=== PATIENT | male | born 1955 | race Caucasian/White ===

== ENCOUNTER 2021-01-06 11:43 | Emergency (ER) ==
[2021-01-06] MEDS ORDERED: Ziprasidone 20 MG VIAL ONE (12:19)
[2021-01-06 13:26] LABS: #Basophils 0.1 thou/uL (0.0-0.2); #Eosinphils 0.1 thou/uL (0.0-0.7); #Lymphocytes 1.6 thou/uL (1.20-3.40); #Monocytes 0.4 thou/uL (0.11-0.59); #Neutrophils 3.8 thou/uL (1.40-6.50); %Basophils 0.9 % (0.0-1.0); %Eosinophils 1.1 % (0.0-10.0); %Lymphocytes 26.5 % (21.0-51.0); %Monocytes 7.3 % (0.0-10.0); %Neutrophils 64.1 % (42.0-75.0); Mean Corpuscular HGB CONC 34.6 g/dL (32.0-36.0); Mean Corpuscular Hemoglobin 34.2 pg (27.0-31.0); Mean Corpuscular Volume 98.8 fL (78.0-98.0); Mean Platelet Volume 7.9 fL (7.4-10.4); Platelet Count 163 thou/uL (130-400); RBC Distribution Width 11.2 % (11.5-14.5); Red Blood Cell (RBC) Count 4.39 mill/uL (4.70-6.10); White Blood Cell (WBC) Count 5.9 thou/uL (4.8-10.8)
[2021-01-06 13:47] LABS: Acetaminophen Less than 6.0 mcg/mL (10.0-30.0); Alcohol Less than 10 mg/dL (Less than 10); Salicylate Less than 8.0 mg/dL (15.0-30.0)
[2021-01-06 13:48] LABS: Bilirubin Negative (Negative); Blood, Urine Negative (Negative); Clarity Clear (Clear); Glucose, Urine (Dipstick) Normal (Negative); Ketone, Urine Negative (Negative); Leukocyte Negative Leu/uL (Negative); Nitrite Negative (Negative); Protein, Urine (Dipstick) Negative (Neg-Trace); Specific Gravity, Urine 1.016 (1.002-1.036); Urobilinogen Normal mg/dL (Less than 2); pH, Urine 6.5 (5.0-9.0)
[2021-01-06 13:49] LABS: ALT (SGPT) 20 U/L (8-55); AST (SGOT) 22 U/L (5-34); Alkaline Phosphatase 65 U/L (40-110); Anion Gap 11 mmol/L (10-20); BUN (Urea Nitrogen) 15 mg/dL (8.4-25.7); Bilirubin, Total 1.5 mg/dL (0.2-1.2); Calc. Creatinine Clearance 0 mL/min (70-130); Calcium 8.6 mg/dL (7.8-10.44); Carbon Dioxide 25 mmol/L (23-31); Chloride 107 mmol/L (98-107); Globulin 2.6 g/dL (2.4-3.5); Glucose 98 mg/dL (80-115); Potassium 4.3 mmol/L (3.5-5.1); Protein, Total 6.6 g/dL (5.8-8.1); Sodium 139 mmol/L (136-145)
[2021-01-06 13:59] LABS: Amphetamine Not Detected (NotDetected); Barbiturates Screen Not Detected (NotDetected); Benzodiazepine Screen Not Detected (NotDetected); Cocaine Metabolite Screen Not Detected (NotDetected); Medtox Control Line Valid? VALID (VALID); Medtox Reader # READER 4; Methadone Not Detected (NotDetected); Methamphetamine Not Detected (NotDetected); Opiate Screen Not Detected (NotDetected); Oxycodone Screen Not Detected (NotDetected); Phencyclidine (PCP) Not Detected (NotDetected); THC/Cannabinoid Screen Not Detected (NotDetected); Tricyclic Screen Not Detected (NotDetected)
== END 2021-01-06 21:30 ==
LOC: ERS 11:43
DX: F29 Unspecified psychosis not due to a substance or known physiological condition (principal); F17.220 Nicotine dependence, chewing tobacco, uncomplicated
CPT/HCPCS: 36415; 80053; 80306; 80307; 81003; 84443; 85025; 96372; 99285; J3486

== ENCOUNTER 2021-07-11 02:25 | Inpatient (IN) | payer MEDICARE ==
[2021-07-11 04:43] LABS: Troponin I 0.036 ng/mL (< 0.028)
[2021-07-11 07:16] LABS: Troponin I 0.026 ng/mL (< 0.028)
[2021-07-11] MEDS ORDERED: Nitroglycerin 0.4 MG TAB (25 Tab Bottle) SL PRN (09:13)
[2021-07-11] MEDS ORDERED: Senokot S 8.6-50 MG TAB PO PRN (09:16)
[2021-07-11] MEDS ORDERED: Acetaminophen 325 MG TAB PO PRN (09:16)
[2021-07-11] MEDS ORDERED: Calcium Carbonate 500 MG ChewTAB PO PRN (09:16)
[2021-07-11] MEDS ORDERED: Communication Order-Pharmacy FS ONE (09:17)
[2021-07-11] MEDS ORDERED: hydrALAZINE 20 MG/ML VIAL SLOW IVP PRN (09:19)
[2021-07-11] MEDS ORDERED: HYDROcodone/Acetaminophen 5/325 mg Tablet ONE (09:58)
[2021-07-11] MEDS: HYDROcodone/Acetaminophen 5/325 mg Tablet PO PRN (10:01)
[2021-07-11 10:09] VITALS: BMI 28.7
[2021-07-11 10:20] LABS: Lactic Acid 1.6 mmol/L (0.5-2.2)
[2021-07-11 10:24] LABS: ALT (SGPT) 34 U/L (8-55); AST (SGOT) 37 U/L (5-34); Albumin 3.4 g/dL (3.4-4.8); Alkaline Phosphatase 69 U/L (40-110); Anion Gap 14 mmol/L (10-20); BUN (Urea Nitrogen) 27 mg/dL (8.4-25.7); Bilirubin, Total 1.9 mg/dL (0.2-1.2); Calc. Creatinine Clearance 65 mL/min (70-130); Calcium 8.6 mg/dL (7.8-10.44); Carbon Dioxide 23 mmol/L (23-31); Chloride 104 mmol/L (98-107); Globulin 1.9 g/dL (2.4-3.5); Glucose 114 mg/dL (80-115); Magnesium 1.8 mg/dL (1.6-2.6); Potassium 4.4 mmol/L (3.5-5.1); Protein, Total 5.3 g/dL (5.8-8.1); Sodium 137 mmol/L (136-145)
[2021-07-11 10:39] LABS: Bacteria/HPF None Seen HPF (None Seen); Bilirubin Negative (Negative); Blood, Urine Negative (Negative); Clarity Clear (Clear); Glucose, Urine (Dipstick) Normal (Negative); Ketone, Urine Negative (Negative); Leukocyte Negative Leu/uL (Negative); Nitrite Negative (Negative); Protein, Urine (Dipstick) Negative (Neg-Trace); RBC/HPF 0-3 HPF (0-3); Specific Gravity, Urine 1.015 (1.002-1.036); Squamous Epithelial 0-3 HPF (0-3); Urobilinogen Normal mg/dL (Less than 2); WBC/HPF 0-3 HPF (0-3)
[2021-07-11] MEDS ORDERED: Enoxaparin Sodium 100 MG/ML SYRINGE ONE (11:20)
[2021-07-11] MEDS: Enoxaparin Sodium 100 MG/ML SYRINGE SC SCH (11:25)
[2021-07-11] MEDS ORDERED: GUAIFENESIN SF SOLN 200 MG/10 ML UDCUP PO PRN (11:36)
[2021-07-11] MEDS ORDERED: Spironolactone 25 MG TAB PO SCH (12:15)
[2021-07-11] MEDS ORDERED: Metoprolol Tartrate 25 MG TAB ONE (13:02)
[2021-07-11] MEDS ORDERED: Furosemide 40 MG/4 ML VIAL ONE (13:03)
[2021-07-11] MEDS ORDERED: Enoxaparin Sodium 80 MG/0.8 ML SYRINGE SC SCH (14:00)
[2021-07-11] MEDS: Furosemide 40 MG/4 ML VIAL SLOW IVP SCH (14:04)
[2021-07-11] MEDS ORDERED: Magnesium Sulfate 2 GM in Sodium Chloride 0.9% 100 ML IVPB SCH (19:45)
[2021-07-11] MEDS ORDERED: Magnesium 2 GM/50 ML 2 GM in Premix Bag 1 BAG IVPB SCH (19:45)
[2021-07-11] MEDS ORDERED: Electrolyte Replacement Protocol 1 EACH FS SCH (19:45)
[2021-07-11] MEDS: guaiFENesin ER 600 MG TAB PO SCH (20:05)
[2021-07-12] MEDS: Enoxaparin Sodium 100 MG/ML SYRINGE SC SCH ×3 (01:22→23:36)
[2021-07-12 04:46] LABS: #Basophils 0.1 thou/uL (0.0-0.2); #Eosinphils 0.1 thou/uL (0.0-0.7); #Lymphocytes 1.5 thou/uL (1.20-3.40); #Monocytes 0.8 thou/uL (0.11-0.59); #Neutrophils 6.3 thou/uL (1.40-6.50); %Basophils 0.7 % (0.0-1.0); %Eosinophils 0.8 % (0.0-10.0); %Lymphocytes 17.4 % (21.0-51.0); %Monocytes 9.2 % (0.0-10.0); %Neutrophils 71.8 % (42.0-75.0); Hemoglobin 14.5 g/dL (14.0-18.0); Mean Corpuscular HGB CONC 32.8 g/dL (32.0-36.0); Mean Corpuscular Hemoglobin 32.6 pg (27.0-31.0); Mean Corpuscular Volume 99.1 fL (78.0-98.0); Mean Platelet Volume 8.7 fL (7.4-10.4); Platelet Count 160 thou/uL (130-400); Red Blood Cell (RBC) Count 4.47 mill/uL (4.70-6.10); White Blood Cell (WBC) Count 8.7 thou/uL (4.8-10.8)
[2021-07-12 05:07] LABS: ALT (SGPT) 33 U/L (8-55); AST (SGOT) 39 U/L (5-34); Albumin 3.3 g/dL (3.4-4.8); Alkaline Phosphatase 67 U/L (40-110); Anion Gap 12 mmol/L (10-20); BUN (Urea Nitrogen) 30 mg/dL (8.4-25.7); Bilirubin, Total 1.5 mg/dL (0.2-1.2); Calc. Creatinine Clearance 66 mL/min (70-130); Calcium 8.7 mg/dL (7.8-10.44); Carbon Dioxide 25 mmol/L (23-31); Chloride 102 mmol/L (98-107); Glucose 103 mg/dL (80-115); Magnesium 2.1 mg/dL (1.6-2.6); Potassium 4.2 mmol/L (3.5-5.1); Protein, Total 5.3 g/dL (5.8-8.1); Sodium 135 mmol/L (136-145)
[2021-07-12] MEDS: Furosemide 40 MG/4 ML VIAL SLOW IVP SCH (05:46)
[2021-07-12] MEDS: HYDROcodone/Acetaminophen 5/325 mg Tablet PO PRN (08:24)
[2021-07-12] MEDS: guaiFENesin ER 600 MG TAB PO SCH ×2 (08:25→20:35)
[2021-07-12] MEDS: Spironolactone 25 MG TAB PO SCH (08:25)
[2021-07-12] MEDS: Aspirin 81 mg Enteric Coated Tablet PO SCH (08:25)
[2021-07-12] MEDS ORDERED: FLU VACC QS2021-22(6MOS UP)/PF 60 MCG/0.5 ML SYRINGE IM ONE (09:00)
[2021-07-12] MEDS ORDERED: Furosemide 40 MG/4 ML VIAL SLOW IVP SCH (12:15)
[2021-07-12] MEDS: Digoxin 0.5 MG/2 ML AMP SLOW IVP SCH ×2 (12:30→15:06)
[2021-07-12] MEDS ORDERED: Digoxin 0.25 MG TAB PO SCH (16:30)
[2021-07-13 04:58] LABS: #Eosinphils 0.1 thou/uL (0.0-0.7); #Lymphocytes 1.6 thou/uL (1.20-3.40); #Monocytes 0.8 thou/uL (0.11-0.59); #Neutrophils 5.7 thou/uL (1.40-6.50); %Basophils 0.5 % (0.0-1.0); %Eosinophils 1.1 % (0.0-10.0); %Lymphocytes 19.1 % (21.0-51.0); %Monocytes 9.8 % (0.0-10.0); %Neutrophils 69.6 % (42.0-75.0); Hemoglobin 13.3 g/dL (14.0-18.0); Mean Corpuscular HGB CONC 33.6 g/dL (32.0-36.0); Mean Corpuscular Hemoglobin 33.3 pg (27.0-31.0); Mean Corpuscular Volume 99.2 fL (78.0-98.0); Mean Platelet Volume 8.8 fL (7.4-10.4); Platelet Count 146 thou/uL (130-400); RBC Distribution Width 12.9 % (11.5-14.5); White Blood Cell (WBC) Count 8.2 thou/uL (4.8-10.8)
[2021-07-13 05:21] LABS: Anion Gap 13 mmol/L (10-20); BUN (Urea Nitrogen) 29 mg/dL (8.4-25.7); Calc. Creatinine Clearance 64 mL/min (70-130); Carbon Dioxide 29 mmol/L (23-31); Chloride 101 mmol/L (98-107); Potassium 3.6 mmol/L (3.5-5.1); Sodium 139 mmol/L (136-145)
[2021-07-13 05:22] LABS: ALT (SGPT) 27 U/L (8-55); AST (SGOT) 28 U/L (5-34); Alkaline Phosphatase 59 U/L (40-110); Bilirubin, Total 0.9 mg/dL (0.2-1.2); Calcium 8.1 mg/dL (7.8-10.44); Globulin 1.8 g/dL (2.4-3.5); Glucose 125 mg/dL (80-115); Magnesium 1.8 mg/dL (1.6-2.6); Protein, Total 4.8 g/dL (5.8-8.1)
[2021-07-13] MEDS: Furosemide 40 MG/4 ML VIAL SLOW IVP SCH ×2 (05:32→13:57)
[2021-07-13] MEDS ORDERED: Magnesium 2 GM/50 ML 2 GM in Premix Bag 1 BAG IVPB SCH (06:45)
[2021-07-13] MEDS: Digoxin 0.25 MG TAB PO SCH (08:53)
[2021-07-13] MEDS: Aspirin 81 mg Enteric Coated Tablet PO SCH (08:54)
[2021-07-13] MEDS: guaiFENesin ER 600 MG TAB PO SCH ×2 (08:55→20:29)
[2021-07-13] MEDS: Spironolactone 25 MG TAB PO SCH (08:55)
[2021-07-13] MEDS ORDERED: Communication Order-Pharmacy FS SCH (09:30)
[2021-07-13] MEDS: Enoxaparin Sodium 100 MG/ML SYRINGE SC SCH (11:13)
[2021-07-13] MEDS ORDERED: Furosemide 40 MG TAB PO SCH (14:45)
[2021-07-14 05:16] LABS: Hemoglobin 13.8 g/dL (14.0-18.0); Platelet Count 132 thou/uL (130-400)
[2021-07-14] MEDS: Digoxin 0.25 MG TAB PO SCH (05:22)
[2021-07-14] MEDS: Aspirin 81 mg Enteric Coated Tablet PO SCH (05:22)
[2021-07-14] MEDS: guaiFENesin ER 600 MG TAB PO SCH ×2 (05:23→21:24)
[2021-07-14] MEDS: Spironolactone 25 MG TAB PO SCH (05:23)
[2021-07-14 05:34] LABS: Anion Gap 12 mmol/L (10-20); BUN (Urea Nitrogen) 25 mg/dL (8.4-25.7); Calc. Creatinine Clearance 73 mL/min (70-130); Calcium 7.7 mg/dL (7.8-10.44); Carbon Dioxide 29 mmol/L (23-31); Chloride 103 mmol/L (98-107); Glucose 78 mg/dL (80-115); Potassium 4.2 mmol/L (3.5-5.1); Sodium 140 mmol/L (136-145)
[2021-07-14] MEDS: Furosemide 40 MG/4 ML VIAL SLOW IVP SCH ×2 (05:52→15:23)
[2021-07-14] MEDS ORDERED: Iopamidol 370 76% 100 ML VIAL ONE (08:41)
[2021-07-14] MEDS ORDERED: Morphine 2 MG/ML VIAL ONE (11:21)
[2021-07-14] MEDS ORDERED: Midazolam HCl 2 mg/2 ml Vial ONE (11:30)
[2021-07-14] MEDS ORDERED: Sodium Chloride 0.9% 200 ML IV PRN (11:48)
[2021-07-14] MEDS ORDERED: Acetaminophen/Codeine 30-300mg Tablet PO PRN (11:48)
[2021-07-14] MEDS ORDERED: Nitroglycerin 0.4 MG TAB (25 Tab Bottle) SL PRN (11:48)
[2021-07-14] MEDS ORDERED: Morphine 2 MG/ML VIAL SLOW IVP SCH (13:45)
[2021-07-14] MEDS ORDERED: Metolazone 5 MG TAB PO SCH (16:00)
[2021-07-14] MEDS ORDERED: Morphine 2 MG/ML VIAL SLOW IVP PRN (17:45)
[2021-07-14] MEDS: Nystatin Powder 15 GM BOT TOP SCH (21:25)
[2021-07-15] MEDS: Acetaminophen/Codeine 30-300mg Tablet PO PRN ×3 (00:10→21:12)
[2021-07-15] MEDS: Furosemide 40 MG/4 ML VIAL SLOW IVP SCH ×2 (05:04→14:13)
[2021-07-15] MEDS ORDERED: Metolazone 5 MG TAB PO SCH (08:30)
[2021-07-15] MEDS: Digoxin 0.25 MG TAB PO SCH (08:42)
[2021-07-15] MEDS: Apixaban 5 MG TAB PO SCH ×2 (08:44→21:05)
[2021-07-15] MEDS: Spironolactone 25 MG TAB PO SCH (08:44)
[2021-07-15] MEDS: guaiFENesin ER 600 MG TAB PO SCH ×2 (08:44→21:05)
[2021-07-15] MEDS: Nystatin Powder 15 GM BOT TOP SCH ×3 (08:46→21:05)
[2021-07-16 04:53] LABS: Anion Gap 15 mmol/L (10-20); Carbon Dioxide 37 mmol/L (23-31); Chloride 91 mmol/L (98-107); Potassium 4.2 mmol/L (3.5-5.1); Sodium 139 mmol/L (136-145)
[2021-07-16 04:59] LABS: BUN (Urea Nitrogen) 22 mg/dL (8.4-25.7); Calc. Creatinine Clearance 72 mL/min (70-130); Glucose 96 mg/dL (80-115)
[2021-07-16] MEDS: Furosemide 40 MG/4 ML VIAL SLOW IVP SCH ×2 (05:52→14:16)
[2021-07-16] MEDS: Digoxin 0.25 MG TAB PO SCH (08:14)
[2021-07-16] MEDS: guaiFENesin ER 600 MG TAB PO SCH ×2 (08:17→20:48)
[2021-07-16] MEDS: Spironolactone 25 MG TAB PO SCH (08:18)
[2021-07-16] MEDS: Apixaban 5 MG TAB PO SCH ×2 (08:18→20:48)
[2021-07-16] MEDS: Nystatin Powder 15 GM BOT TOP SCH ×3 (08:18→20:46)
[2021-07-17 04:54] LABS: Hemoglobin 16.2 g/dL (14.0-18.0); Platelet Count 189 thou/uL (130-400)
[2021-07-17] MEDS: Furosemide 40 MG/4 ML VIAL SLOW IVP SCH (05:26)
[2021-07-17] MEDS ORDERED: Midazolam HCl 2 mg/2 ml Vial ONE (09:20)
[2021-07-17] MEDS ORDERED: Ketamine 50 MG/ML (10ML VIAL) ONE (09:20)
[2021-07-17] MEDS ORDERED: PROPOFOL 200 MG/20 ML VIAL ONE (09:27)
[2021-07-17] MEDS: Apixaban 5 MG TAB PO SCH ×2 (12:13→21:17)
[2021-07-17] MEDS: Spironolactone 25 MG TAB PO SCH (12:14)
[2021-07-17] MEDS: guaiFENesin ER 600 MG TAB PO SCH ×2 (12:15→21:19)
[2021-07-17] MEDS: Nystatin Powder 15 GM BOT TOP SCH ×3 (12:16→21:19)
[2021-07-17] MEDS: Amiodarone 200 MG TAB PO SCH ×2 (15:47→21:18)
[2021-07-17] MEDS: Acetaminophen/Codeine 30-300mg Tablet PO PRN (21:24)
[2021-07-18 05:30] LABS: Anion Gap 16 mmol/L (10-20); BUN (Urea Nitrogen) 38 mg/dL (8.4-25.7); Calc. Creatinine Clearance 52 mL/min (70-130); Calcium 8.5 mg/dL (7.8-10.44); Carbon Dioxide 32 mmol/L (23-31); Chloride 91 mmol/L (98-107); Glucose 107 mg/dL (80-115); Potassium 4.6 mmol/L (3.5-5.1); Sodium 134 mmol/L (136-145)
[2021-07-18] MEDS ORDERED: Furosemide 40 MG TAB PO SCH ×2 (07:30→09:30)
[2021-07-18] MEDS: Spironolactone 25 MG TAB PO SCH (09:42)
[2021-07-18] MEDS: Apixaban 5 MG TAB PO SCH ×2 (09:43→21:07)
[2021-07-18] MEDS: guaiFENesin ER 600 MG TAB PO SCH ×2 (09:43→21:08)
[2021-07-18] MEDS: Nystatin Powder 15 GM BOT TOP SCH ×3 (09:45→21:09)
[2021-07-18] MEDS: Amiodarone 200 MG TAB PO SCH ×2 (17:57→21:07)
[2021-07-19] MEDS ORDERED: Furosemide 40 MG TAB PO SCH (07:30)
[2021-07-19] MEDS: Amiodarone 200 MG TAB PO SCH (08:23)
[2021-07-19] MEDS: Apixaban 5 MG TAB PO SCH (08:23)
[2021-07-19] MEDS: guaiFENesin ER 600 MG TAB PO SCH (08:23)
[2021-07-19] MEDS: Nystatin Powder 15 GM BOT TOP SCH ×3 (08:24→14:47)
[2021-07-19] MEDS: Spironolactone 25 MG TAB PO SCH (08:24)
[2021-07-19 16:06] VITALS: BP 116/66; TEMP 98.1
== END 2021-07-19 16:23 | disposition home or self-care (01) | DRG 286 ==
LOC: ERS 02:25 → ERHOLD 03:09 → 2NO 15:38
PROVIDERS: ADMIT Student in an Organized Health Care Education/Training Program; ATTEND Internal Medicine
PROC: 4A023N7 Measurement of Cardiac Sampling and Pressure, Left Heart, Percutaneous Approach (ICD-10-PCS; principal; 2021-07-14)
PROC: B2111ZZ Fluoroscopy of Multiple Coronary Arteries using Low Osmolar Contrast (ICD-10-PCS; 2021-07-14)
PROC: B2151ZZ Fluoroscopy of Left Heart using Low Osmolar Contrast (ICD-10-PCS; 2021-07-14)
PROC: B24BZZ4 Ultrasonography of Heart with Aorta, Transesophageal (ICD-10-PCS; 2021-07-17)
PROC: 5A2204Z Restoration of Cardiac Rhythm, Single (ICD-10-PCS; 2021-07-17)
DX: I13.0 Hypertensive heart and chronic kidney disease with heart failure and stage 1 through stage 4 chronic kidney disease, or unspecified chronic kidney disease (principal); J96.01 Acute respiratory failure with hypoxia; I50.23 Acute on chronic systolic (congestive) heart failure; N17.9 Acute kidney failure, unspecified; E87.1 Hypo-osmolality and hyponatremia; Z20.822 Contact with and (suspected) exposure to COVID-19; I48.0 Paroxysmal atrial fibrillation; F25.9 Schizoaffective disorder, unspecified; F17.210 Nicotine dependence, cigarettes, uncomplicated; J44.9 Chronic obstructive pulmonary disease, unspecified; I08.1 Rheumatic disorders of both mitral and tricuspid valves; I42.8 Other cardiomyopathies; N18.30 Chronic kidney disease, stage 3 unspecified; Z79.899 Other long term (current) drug therapy; Z98.890 Other specified postprocedural states
CPT/HCPCS: 36415; 36416; 71046; 76870; 80048; 80053; 81001; 83605; 83735; 84443; 84484; 85014; 85018; 85025; 85049; 86140; 92960; 93005; 93010; 93306; 93312; 93458; 93798; 93976; 94760; 97139; 99152; 99285; J1160; J1650; J1940; J2250; J2270; J2704; J3475; Q9967

== ENCOUNTER 2021-09-07 21:05 | Inpatient (IN) | payer MEDICARE ==
[~2021-09-07 21:05] MED LIST: Iopamidol-370 76% 500 ML 1 ML ONE
[2021-09-07] MEDS ORDERED: Digoxin 0.5 MG/2 ML AMP ONE (21:47)
[2021-09-07] MEDS ORDERED: Magnesium 2 GM/50 ML BAG (IN WATER) ONE (21:47)
[2021-09-07] MEDS ORDERED: Furosemide 40 MG/4 ML VIAL ONE (21:47)
[2021-09-07 21:53] LABS: #Lymphocytes 0.8 thou/uL (1.20-3.40); #Monocytes 0.8 thou/uL (0.11-0.59); #Neutrophils 11.4 thou/uL (1.40-6.50); %Basophils 0.1 % (0.0-1.0); %Eosinophils 0.1 % (0.0-10.0); %Lymphocytes 6.3 % (21.0-51.0); %Monocytes 5.8 % (0.0-10.0); %Neutrophils 87.7 % (42.0-75.0); Hemoglobin 14.7 g/dL (14.0-18.0); Mean Corpuscular HGB CONC 32.2 g/dL (32.0-36.0); Mean Corpuscular Hemoglobin 33.2 pg (27.0-31.0); Platelet Count 114 thou/uL (130-400); RBC Distribution Width 14.7 % (11.5-14.5); Red Blood Cell (RBC) Count 4.41 mill/uL (4.70-6.10); White Blood Cell (WBC) Count 13.1 thou/uL (4.8-10.8)
[2021-09-07 22:09] LABS: ALT (SGPT) 70 U/L (8-55); AST (SGOT) 102 U/L (5-34); Alkaline Phosphatase 136 U/L (40-110); Anion Gap 15 mmol/L (10-20); BUN (Urea Nitrogen) 37 mg/dL (8.4-25.7); Bilirubin, Total 2.6 mg/dL (0.2-1.2); CK (CPK) 1125 U/L (30-200); Calc. Creatinine Clearance 0 mL/min (70-130); Calcium 8.8 mg/dL (7.8-10.44); Carbon Dioxide 20 mmol/L (23-31); Chloride 97 mmol/L (98-107); Globulin 2.7 g/dL (2.4-3.5); Glucose 114 mg/dL (80-115); Lipase 66 U/L (8-78); Potassium 4.7 mmol/L (3.5-5.1); Protein, Total 5.7 g/dL (5.8-8.1); Sodium 127 mmol/L (136-145)
[2021-09-07] MEDS ORDERED: Diltiazem HCl 125 MG, Admixture Fee 1 EACH in Sodium Chloride 0.9% 100 ML IVPB SCH (22:15)
[2021-09-07 22:48] LABS: Acetaminophen Less than 6.0 mcg/mL (10.0-30.0); Alcohol Less than 10 mg/dL (Less than 10); Salicylate Less than 8.0 mg/dL (15.0-30.0)
[2021-09-07 23:12] LABS: CKMB 22.5 ng/mL (0-6.6)
[2021-09-07] MEDS ORDERED: Apixaban 5 MG TAB PO SCH (23:45)
[2021-09-08 02:00] LABS: Troponin I 0.039 ng/mL (< 0.028)
[2021-09-08 02:56] LABS: SARS-CoV-2 NAA Rapid Test Not Detected (NotDetected)
[2021-09-08] MEDS ORDERED: Acetaminophen 325 MG TAB ONE (03:10)
[2021-09-08] MEDS: Acetaminophen 325 MG TAB PO PRN ×3 (04:19→23:04)
[2021-09-08 05:06] LABS: Anion Gap 13 mmol/L (10-20); BUN (Urea Nitrogen) 37 mg/dL (8.4-25.7); Calc. Creatinine Clearance 79 mL/min (70-130); Carbon Dioxide 28 mmol/L (23-31); Chloride 94 mmol/L (98-107); Potassium 3.9 mmol/L (3.5-5.1); Sodium 131 mmol/L (136-145)
[2021-09-08 05:07] LABS: Calcium 8.3 mg/dL (7.8-10.44); Glucose 69 mg/dL (80-115); Magnesium 2.2 mg/dL (1.6-2.6)
[2021-09-08 05:12] LABS: Troponin I 0.042 ng/mL (< 0.028)
[2021-09-08] MEDS ORDERED: FLU VACC QS2021-22(65YR UP)/PF 240 MCG/0.7 ML SYRINGE IM ONE (09:15)
[2021-09-08 13:02] LABS: SARS-CoV-2 PCR by NAA Not Detected (NotDetected)
[2021-09-08] MEDS ORDERED: Calcium Carbonate 500 MG ChewTAB PO PRN (14:14)
[2021-09-08] MEDS ORDERED: Senokot S 8.6-50 MG TAB PO PRN (14:14)
[2021-09-08] MEDS ORDERED: Lorazepam 1 MG TAB PO PRN (19:28)
[2021-09-08] MEDS ORDERED: Lorazepam 2 MG/ML VIAL IM PRN (19:28)
[2021-09-08] MEDS ORDERED: Ondansetron ODT 4 MG TAB PO PRN (19:28)
[2021-09-08] MEDS ORDERED: Electrolyte Replacement Protocol 1 EACH FS SCH (19:30)
[2021-09-08] MEDS ORDERED: Lorazepam 1 MG TAB PO SCH (19:30)
[2021-09-08 20:45] LABS: Phosphorus 3.4 mg/dL (2.3-4.7)
[2021-09-08] MEDS: Apixaban 5 MG TAB PO SCH (23:04)
[2021-09-08] MEDS: Thiamine HCl 200 MG/2 ML VIAL SLOW IVP SCH (23:07)
[2021-09-08] MEDS: Lorazepam 1 MG TAB PO SCH (23:49)
[2021-09-09] MEDS ORDERED: HYDROcodone/Acetaminophen 7.5/325 mg Tablet PO SCH (01:45)
[2021-09-09 04:49] LABS: Amphetamine Not Detected (NotDetected); Barbiturates Screen Not Detected (NotDetected); Benzodiazepine Screen Not Detected (NotDetected); Cocaine Metabolite Screen Not Detected (NotDetected); Methadone Not Detected (NotDetected); Methamphetamine Not Detected (NotDetected); Opiate Screen Not Detected (NotDetected); Oxycodone Screen Not Detected (NotDetected); Phencyclidine (PCP) Not Detected (NotDetected); THC/Cannabinoid Screen Not Detected (NotDetected); Tricyclic Screen Not Detected (NotDetected)
[2021-09-09 05:35] LABS: #Eosinphils 0.1 thou/uL (0.0-0.7); #Lymphocytes 0.8 thou/uL (1.20-3.40); #Monocytes 0.7 thou/uL (0.11-0.59); #Neutrophils 7.5 thou/uL (1.40-6.50); %Basophils 0.2 % (0.0-1.0); %Eosinophils 0.6 % (0.0-10.0); %Lymphocytes 9.2 % (21.0-51.0); %Monocytes 7.3 % (0.0-10.0); %Neutrophils 82.8 % (42.0-75.0); Hemoglobin 12.8 g/dL (14.0-18.0); Mean Corpuscular HGB CONC 32.9 g/dL (32.0-36.0); Mean Corpuscular Hemoglobin 33.6 pg (27.0-31.0); Mean Platelet Volume 7.7 fL (7.4-10.4); Platelet Count 98 thou/uL (130-400); RBC Distribution Width 14.6 % (11.5-14.5); Red Blood Cell (RBC) Count 3.81 mill/uL (4.70-6.10); White Blood Cell (WBC) Count 9.1 thou/uL (4.8-10.8)
[2021-09-09 05:46] LABS: ALT (SGPT) 51 U/L (8-55); AST (SGOT) 47 U/L (5-34); Albumin 2.6 g/dL (3.4-4.8); Alkaline Phosphatase 106 U/L (40-110); Bilirubin, Direct 0.9 mg/dL (0.1-0.3); Bilirubin, Total 1.4 mg/dL (0.2-1.2); Magnesium 2.1 mg/dL (1.6-2.6); Protein, Total 4.8 g/dL (5.8-8.1)
[2021-09-09] MEDS ORDERED: Furosemide 40 MG/4 ML VIAL SLOW IVP SCH (06:00)
[2021-09-09] MEDS: Lorazepam 1 MG TAB PO SCH ×4 (06:52→23:43)
[2021-09-09 07:03] LABS: Anion Gap 13 mmol/L (10-20); BUN (Urea Nitrogen) 35 mg/dL (8.4-25.7); Calc. Creatinine Clearance 71 mL/min (70-130); Calcium 7.8 mg/dL (7.8-10.44); Carbon Dioxide 24 mmol/L (23-31); Chloride 96 mmol/L (98-107); Glucose 103 mg/dL (80-115); Potassium 3.8 mmol/L (3.5-5.1); Sodium 129 mmol/L (136-145)
[2021-09-09] MEDS: Apixaban 5 MG TAB PO SCH ×2 (08:05→21:18)
[2021-09-09] MEDS: Multivit, Therapeutic 1 TAB PO SCH (08:05)
[2021-09-09] MEDS: Folic Acid 1 MG TAB PO SCH (08:05)
[2021-09-09] MEDS ORDERED: Spironolactone 25 MG TAB PO SCH (09:00)
[2021-09-09] MEDS ORDERED: Furosemide 100 MG/10 ML VIAL SLOW IVP SCH (09:30)
[2021-09-09 13:33] VITALS: BMI 28.7
[2021-09-09] MEDS: Furosemide 100 MG/10 ML VIAL SLOW IVP SCH (15:03)
[2021-09-09] MEDS ORDERED: Lorazepam 1 MG TAB PO PRN (19:29)
[2021-09-09] MEDS: Thiamine HCl 200 MG/2 ML VIAL SLOW IVP SCH (21:19)
[2021-09-10 05:45] LABS: ALT (SGPT) 43 U/L (8-55); AST (SGOT) 35 U/L (5-34); Albumin 2.6 g/dL (3.4-4.8); Alkaline Phosphatase 97 U/L (40-110); Anion Gap 11 mmol/L (10-20); BUN (Urea Nitrogen) 34 mg/dL (8.4-25.7); Bilirubin, Total 1.2 mg/dL (0.2-1.2); Calc. Creatinine Clearance 78 mL/min (70-130); Calcium 7.5 mg/dL (7.8-10.44); Carbon Dioxide 28 mmol/L (23-31); Chloride 96 mmol/L (98-107); Globulin 2.2 g/dL (2.4-3.5); Glucose 97 mg/dL (80-115); Magnesium 1.7 mg/dL (1.6-2.6); Potassium 3.8 mmol/L (3.5-5.1); Protein, Total 4.8 g/dL (5.8-8.1); Sodium 131 mmol/L (136-145)
[2021-09-10] MEDS: Furosemide 100 MG/10 ML VIAL SLOW IVP SCH ×2 (06:42→13:10)
[2021-09-10] MEDS: Lorazepam 1 MG TAB PO SCH ×3 (06:43→18:04)
[2021-09-10] MEDS: Folic Acid 1 MG TAB PO SCH (09:50)
[2021-09-10] MEDS: Apixaban 5 MG TAB PO SCH ×2 (09:50→23:02)
[2021-09-10] MEDS: Multivit, Therapeutic 1 TAB PO SCH (09:51)
[2021-09-10] MEDS: Spironolactone 25 MG TAB PO SCH (09:51)
[2021-09-10] MEDS ORDERED: Magnesium 2 GM/50 ML 2 GM in Premix Bag 1 BAG IVPB SCH (12:00)
[2021-09-10] MEDS: Acetaminophen 325 MG TAB PO PRN ×2 (13:10→23:03)
[2021-09-10] MEDS ORDERED: Lorazepam 1 MG TAB PO PRN (19:29)
[2021-09-10] MEDS ORDERED: Lorazepam 0.5 MG TAB PO SCH (19:30)
[2021-09-10] MEDS: Nicotine 21 MG PATCH TD SCH (23:02)
[2021-09-11] MEDS: Thiamine HCl 200 MG/2 ML VIAL SLOW IVP SCH (00:23)
[2021-09-11] MEDS ORDERED: Loperamide HCl 2 MG CAP PO PRN (01:09)
[2021-09-11] MEDS: Lorazepam 1 MG TAB PO SCH (01:45)
[2021-09-11] MEDS: traMADol HCl 50 MG TAB PO PRN ×2 (02:55→23:59)
[2021-09-11 06:26] LABS: Anion Gap 8 mmol/L (10-20); BUN (Urea Nitrogen) 41 mg/dL (8.4-25.7); Calc. Creatinine Clearance 95 mL/min (70-130); Calcium 7.6 mg/dL (7.8-10.44); Carbon Dioxide 33 mmol/L (23-31); Chloride 94 mmol/L (98-107); Glucose 95 mg/dL (80-115); Magnesium 1.8 mg/dL (1.6-2.6); Potassium 3.9 mmol/L (3.5-5.1); Sodium 131 mmol/L (136-145)
[2021-09-11] MEDS ORDERED: Magnesium 2 GM/50 ML 2 GM in Premix Bag 1 BAG IVPB SCH (06:45)
[2021-09-11] MEDS: Furosemide 100 MG/10 ML VIAL SLOW IVP SCH ×2 (06:49→16:16)
[2021-09-11] MEDS: Lorazepam 0.5 MG TAB PO SCH ×4 (07:37→23:54)
[2021-09-11] MEDS: Apixaban 5 MG TAB PO SCH ×2 (09:32→21:08)
[2021-09-11] MEDS: Spironolactone 25 MG TAB PO SCH (09:32)
[2021-09-11] MEDS: Folic Acid 1 MG TAB PO SCH (09:32)
[2021-09-11] MEDS: Multivit, Therapeutic 1 TAB PO SCH (09:32)
[2021-09-11] MEDS ORDERED: Lorazepam 0.5 MG TAB PO PRN (19:29)
[2021-09-11] MEDS: Nicotine 21 MG PATCH TD SCH (21:01)
[2021-09-11] MEDS: Acetaminophen 325 MG TAB PO PRN (21:06)
[2021-09-11] MEDS: Thiamine 100 MG TAB PO SCH (21:08)
[2021-09-11] MEDS ORDERED: Melatonin 3 MG TAB PO PRN (23:33)
[2021-09-12 05:05] LABS: Anion Gap 11 mmol/L (10-20); BUN (Urea Nitrogen) 35 mg/dL (8.4-25.7); Calc. Creatinine Clearance 77 mL/min (70-130); Calcium 7.9 mg/dL (7.8-10.44); Carbon Dioxide 36 mmol/L (23-31); Chloride 91 mmol/L (98-107); Glucose 109 mg/dL (80-115); Magnesium 1.9 mg/dL (1.6-2.6); Potassium 3.8 mmol/L (3.5-5.1); Sodium 134 mmol/L (136-145)
[2021-09-12] MEDS ORDERED: Magnesium 2 GM/50 ML 2 GM in Premix Bag 1 BAG IVPB SCH (05:45)
[2021-09-12] MEDS: Furosemide 100 MG/10 ML VIAL SLOW IVP SCH (06:13)
[2021-09-12] MEDS: Spironolactone 25 MG TAB PO SCH (10:09)
[2021-09-12] MEDS: Folic Acid 1 MG TAB PO SCH (10:11)
[2021-09-12] MEDS: Apixaban 5 MG TAB PO SCH ×2 (10:11→20:46)
[2021-09-12] MEDS: Multivit, Therapeutic 1 TAB PO SCH (10:12)
[2021-09-12] MEDS: Nicotine 21 MG PATCH TD SCH ×2 (18:24→18:33)
[2021-09-12] MEDS: Thiamine 100 MG TAB PO SCH (20:46)
[2021-09-13 06:17] LABS: Anion Gap 13 mmol/L (10-20); BUN (Urea Nitrogen) 37 mg/dL (8.4-25.7); Calc. Creatinine Clearance 87 mL/min (70-130); Calcium 8.7 mg/dL (7.8-10.44); Carbon Dioxide 34 mmol/L (23-31); Chloride 93 mmol/L (98-107); Glucose 93 mg/dL (80-115); Potassium 3.9 mmol/L (3.5-5.1); Sodium 136 mmol/L (136-145)
[2021-09-13] MEDS: Furosemide 40 MG TAB PO SCH (07:29)
[2021-09-13] MEDS: Apixaban 5 MG TAB PO SCH ×2 (08:53→20:33)
[2021-09-13] MEDS: Multivit, Therapeutic 1 TAB PO SCH (08:53)
[2021-09-13] MEDS: Folic Acid 1 MG TAB PO SCH (08:53)
[2021-09-13] MEDS: Spironolactone 25 MG TAB PO SCH (08:53)
[2021-09-13] MEDS: Nicotine 21 MG PATCH TD SCH (19:25)
[2021-09-13] MEDS: Thiamine 100 MG TAB PO SCH (20:32)
[2021-09-14] MEDS: Spironolactone 25 MG TAB PO SCH (08:19)
[2021-09-14] MEDS: Furosemide 40 MG TAB PO SCH (08:20)
[2021-09-14] MEDS: Folic Acid 1 MG TAB PO SCH (08:20)
[2021-09-14] MEDS: Apixaban 5 MG TAB PO SCH ×2 (08:20→20:42)
[2021-09-14] MEDS: Multivit, Therapeutic 1 TAB PO SCH (08:20)
[2021-09-14 08:21] LABS: #Eosinphils 0.1 thou/uL (0.0-0.7); #Lymphocytes 1.2 thou/uL (1.20-3.40); #Monocytes 0.6 thou/uL (0.11-0.59); %Basophils 0.5 % (0.0-1.0); %Eosinophils 1.6 % (0.0-10.0); %Lymphocytes 16.6 % (21.0-51.0); %Neutrophils 72.4 % (42.0-75.0); Hemoglobin 13.8 g/dL (14.0-18.0); Mean Corpuscular HGB CONC 31.6 g/dL (32.0-36.0); Mean Corpuscular Hemoglobin 32.6 pg (27.0-31.0); Platelet Count 126 thou/uL (130-400); RBC Distribution Width 14.6 % (11.5-14.5); Red Blood Cell (RBC) Count 4.24 mill/uL (4.70-6.10)
[2021-09-14 08:39] LABS: Anion Gap 11 mmol/L (10-20); BUN (Urea Nitrogen) 35 mg/dL (8.4-25.7); Calc. Creatinine Clearance 100 mL/min (70-130); Calcium 9.1 mg/dL (7.8-10.44); Carbon Dioxide 33 mmol/L (23-31); Chloride 99 mmol/L (98-107); Glucose 110 mg/dL (80-115); Potassium 4.4 mmol/L (3.5-5.1); Sodium 139 mmol/L (136-145)
[2021-09-14] MEDS: Nicotine 21 MG PATCH TD SCH (17:29)
[2021-09-14] MEDS: Thiamine 100 MG TAB PO SCH (20:42)
[2021-09-15 05:10] LABS: #Basophils 0.1 thou/uL (0.0-0.2); #Eosinphils 0.1 thou/uL (0.0-0.7); #Lymphocytes 1.5 thou/uL (1.20-3.40); #Monocytes 0.5 thou/uL (0.11-0.59); #Neutrophils 4.1 thou/uL (1.40-6.50); %Basophils 0.8 % (0.0-1.0); %Lymphocytes 24.3 % (21.0-51.0); %Monocytes 8.1 % (0.0-10.0); %Neutrophils 64.8 % (42.0-75.0); Hemoglobin 13.8 g/dL (14.0-18.0); Mean Corpuscular HGB CONC 31.3 g/dL (32.0-36.0); Mean Corpuscular Hemoglobin 32.3 pg (27.0-31.0); Mean Platelet Volume 7.3 fL (7.4-10.4); Platelet Count 144 thou/uL (130-400); RBC Distribution Width 14.6 % (11.5-14.5); Red Blood Cell (RBC) Count 4.26 mill/uL (4.70-6.10); White Blood Cell (WBC) Count 6.3 thou/uL (4.8-10.8)
[2021-09-15 05:31] LABS: Anion Gap 13 mmol/L (10-20); BUN (Urea Nitrogen) 39 mg/dL (8.4-25.7); Calc. Creatinine Clearance 89 mL/min (70-130); Carbon Dioxide 29 mmol/L (23-31); Chloride 100 mmol/L (98-107); Glucose 118 mg/dL (80-115); Potassium 4.4 mmol/L (3.5-5.1); Sodium 138 mmol/L (136-145)
[2021-09-15] MEDS: Spironolactone 25 MG TAB PO SCH (09:01)
[2021-09-15] MEDS: Furosemide 40 MG TAB PO SCH (09:02)
[2021-09-15] MEDS: Multivit, Therapeutic 1 TAB PO SCH (09:02)
[2021-09-15] MEDS: Apixaban 5 MG TAB PO SCH ×2 (09:02→21:07)
[2021-09-15] MEDS: Folic Acid 1 MG TAB PO SCH (09:02)
[2021-09-15] MEDS: traMADol HCl 50 MG TAB PO PRN ×2 (09:03→17:15)
[2021-09-15 14:37] LABS: SARS-CoV-2 PCR by NAA Not Detected (NotDetected)
[2021-09-15] MEDS: Nicotine 21 MG PATCH TD SCH (21:04)
[2021-09-15] MEDS: Thiamine 100 MG TAB PO SCH (21:07)
[2021-09-16 04:44] LABS: #Eosinphils 0.1 thou/uL (0.0-0.7); #Lymphocytes 1.8 thou/uL (1.20-3.40); #Monocytes 0.6 thou/uL (0.11-0.59); #Neutrophils 4.9 thou/uL (1.40-6.50); %Basophils 0.4 % (0.0-1.0); %Eosinophils 1.4 % (0.0-10.0); %Lymphocytes 24.6 % (21.0-51.0); %Monocytes 8.2 % (0.0-10.0); %Neutrophils 65.4 % (42.0-75.0); Hemoglobin 14.7 g/dL (14.0-18.0); Mean Corpuscular HGB CONC 31.9 g/dL (32.0-36.0); Mean Corpuscular Hemoglobin 32.8 pg (27.0-31.0); Mean Platelet Volume 7.3 fL (7.4-10.4); Platelet Count 137 thou/uL (130-400); RBC Distribution Width 14.5 % (11.5-14.5); Red Blood Cell (RBC) Count 4.49 mill/uL (4.70-6.10); White Blood Cell (WBC) Count 7.5 thou/uL (4.8-10.8)
[2021-09-16 05:09] LABS: Anion Gap 12 mmol/L (10-20); BUN (Urea Nitrogen) 44 mg/dL (8.4-25.7); Calc. Creatinine Clearance 76 mL/min (70-130); Carbon Dioxide 28 mmol/L (23-31); Chloride 102 mmol/L (98-107); Glucose 103 mg/dL (80-115); Potassium 4.9 mmol/L (3.5-5.1); Sodium 137 mmol/L (136-145)
[2021-09-16] MEDS: Multivit, Therapeutic 1 TAB PO SCH (09:04)
[2021-09-16] MEDS: Folic Acid 1 MG TAB PO SCH (09:04)
[2021-09-16] MEDS: Apixaban 5 MG TAB PO SCH (09:04)
[2021-09-16] MEDS: Spironolactone 25 MG TAB PO SCH (09:04)
[2021-09-16] MEDS: Furosemide 40 MG TAB PO SCH (09:04)
[2021-09-16 15:41] VITALS: TEMP 97.5
[2021-09-16 16:47] VITALS: BP 100/67
== END 2021-09-16 17:51 | DRG 291 ==
LOC: ERS 21:05 → ERHOLD 23:25 → NEURO 09-08 07:46 → 2NO 09-14 17:09
PROVIDERS: ADMIT Internal Medicine; ATTEND Hospitalist
DX: I11.0 Hypertensive heart disease with heart failure (principal); I50.23 Acute on chronic systolic (congestive) heart failure; N17.9 Acute kidney failure, unspecified; I48.19 Other persistent atrial fibrillation; I24.8 Other forms of acute ischemic heart disease; I47.2 Ventricular tachycardia; M62.82 Rhabdomyolysis; J98.11 Atelectasis; Z20.822 Contact with and (suspected) exposure to COVID-19; F17.210 Nicotine dependence, cigarettes, uncomplicated; I08.1 Rheumatic disorders of both mitral and tricuspid valves; I42.9 Cardiomyopathy, unspecified; E66.9 Obesity, unspecified; I95.9 Hypotension, unspecified; R00.1 Bradycardia, unspecified; E16.2 Hypoglycemia, unspecified; F25.9 Schizoaffective disorder, unspecified; J44.9 Chronic obstructive pulmonary disease, unspecified; F17.220 Nicotine dependence, chewing tobacco, uncomplicated; Z91.14 Patient's other noncompliance with medication regimen; Z79.899 Other long term (current) drug therapy; Z79.01 Long term (current) use of anticoagulants
CPT/HCPCS: 36415; 36416; 71275; 80048; 80053; 80076; 80306; 80307; 82550; 82553; 83690; 83735; 83880; 84100; 84443; 84484; 85007; 85025; 85027; 85379; 90471; 90662; 93005; 96365; 96366; 96367; 96368; 96375; 97139; G0008; J1160; J1940; J3411; J3475; J3490; Q9967; U0002; U0003; U0005